=== PATIENT | male | born 1930 | race Caucasian/White ===

== ENCOUNTER 2016-09-17 12:34 | Inpatient (IN) | payer MEDICARE, OTHER ==
[~2016-09-17 12:34] MED LIST: ASPIRIN EC81 MG PO; CALTRATE 600 +1 EACH PO; CLARITIN 10MG T10 MG PO; DULERA 200 MCG8.8 GM INH; ESOMEPRAZOLE MA40 MG PO; FLUTICASONE PRO16 GM; HYDRALAZINE HCL50 MG PO; LEVALBUTER1.25 MG/3 INH; LIPITOR TAB 1010 MG PO; METOPROLOL TAR100 MG PO; NORVASC 5 MG TAB5 MG PO; PREDNISONE10 M1 PO; SPIRIVA HANDIH18 MCG INH; SYNTHROID 125125 MCG PO; VALSARTAN320 MG PO; VITAMIN D 11000 UNIT PO; XOPENEX HFA15 GM INH
[2016-09-17 14:26] LABS: HEMOGLOBIN 11.7 gm/dl (14.0-17.5); RED BLOOD COUNT 4.02 M/UL (4.20-5.50); WHITE BLOOD COUNT 7.9 K/UL (4.5-11.0)
[2016-09-17 14:55] LABS: BUN/CREATININE RATIO 23 (0-10)
[2016-09-17] MEDS ORDERED: VITAMIN C 500500 MG PO (18:46)
[2016-09-17] MEDS ORDERED: VITAMIN A8000 UNIT PO (18:46)
[2016-09-17] MEDS ORDERED: VITAMIN E1000 UNI1 PO (18:46)
[2016-09-17] MEDS ORDERED: CVS FISH OIL 11 EAC2 PO (18:49)
[2016-09-17] MEDS ORDERED: CENTRUM SILVER1 EAC1 PO (18:50)
[2016-09-17] MEDS ORDERED: MUCINEX600 MG PO (19:01)
[2016-09-17] MEDS ORDERED: VITAMIN B-122000 MC1 PO (19:03)
[2016-09-17] MEDS ORDERED: SODIUM CHLORIDE4 M1 INH (19:07)
[2016-09-18 05:21] LABS: HEMOGLOBIN 11.7 gm/dl (14.0-17.5); RED BLOOD COUNT 3.94 M/UL (4.20-5.50); WHITE BLOOD COUNT 7.4 K/UL (4.5-11.0)
[2016-09-18 05:44] LABS: BUN/CREATININE RATIO 25 (0-10)
--- NOTE | 2016-09-19 01:46 | NUR ---
PT APPEARS TO HAVE NO AREAS OF SKIN BREAKDOWN. FAMILY DECLINED TO HAVE PATIENT TURNED FOR INSPECTION. FAMILY REPORTS NO AREAS OF BREAKDOWN.
[2016-09-19 06:51] LABS: RED BLOOD COUNT 4.09 M/UL (4.20-5.50)
[2016-09-19 06:52] LABS: WHITE BLOOD COUNT 13.2 K/UL (4.5-11.0)
[2016-09-19 07:16] LABS: BUN/CREATININE RATIO 26 (0-10)
[2016-09-20 04:35] LABS: HEMOGLOBIN 10.3 gm/dl (14.0-17.5)
[2016-09-20 04:36] LABS: RED BLOOD COUNT 3.55 M/UL (4.20-5.50); WHITE BLOOD COUNT 7.8 K/UL (4.5-11.0)
[2016-09-21 05:09] LABS: HEMOGLOBIN 10.3 gm/dl (14.0-17.5); RED BLOOD COUNT 3.55 M/UL (4.20-5.50); WHITE BLOOD COUNT 7.3 K/UL (4.5-11.0)
[2016-09-23 04:28] LABS: HEMOGLOBIN 10.4 gm/dl (14.0-17.5); RED BLOOD COUNT 3.58 M/UL (4.20-5.50); WHITE BLOOD COUNT 7.6 K/UL (4.5-11.0)
[2016-09-23 04:56] LABS: BUN/CREATININE RATIO 33 (0-10)
== END 2016-09-23 12:50 | disposition expired | DRG 208 ==
LOC: ER1 12:34 → ZEROF 15:59 → CCU 15:59 → ZEROF 15:59 → PROG CARE 09-18 11:58 → CCU 09-19 09:31
PROVIDERS: Emergency Medicine; Internal Medicine; Internal Medicine Critical Care Medicine; Internal Medicine Pulmonary Disease; ADMIT Hospitalist
PROC: 5A1945Z Respiratory Ventilation, 24-96 Consecutive Hours (ICD-10-PCS; principal; 2016-09-19)
PROC: 0BH17EZ Insertion of Endotracheal Airway into Trachea, Via Natural or Artificial Opening (ICD-10-PCS; 2016-09-19)
DX: J15.5 Pneumonia due to Escherichia coli (principal); J96.22 Acute and chronic respiratory failure with hypercapnia; J96.21 Acute and chronic respiratory failure with hypoxia; I50.31 Acute diastolic (congestive) heart failure; E87.1 Hypo-osmolality and hyponatremia; J44.1 Chronic obstructive pulmonary disease with (acute) exacerbation; C34.11 Malignant neoplasm of upper lobe, right bronchus or lung; N17.9 Acute kidney failure, unspecified; C79.51 Secondary malignant neoplasm of bone; C77.1 Secondary and unspecified malignant neoplasm of intrathoracic lymph nodes; I48.92 Unspecified atrial flutter; I11.0 Hypertensive heart disease with heart failure; I48.91 Unspecified atrial fibrillation; D50.9 Iron deficiency anemia, unspecified; E03.9 Hypothyroidism, unspecified; E78.5 Hyperlipidemia, unspecified; K21.9 Gastro-esophageal reflux disease without esophagitis; J98.09 Other diseases of bronchus, not elsewhere classified; Z51.5 Encounter for palliative care; Z66 Do not resuscitate; Z87.891 Personal history of nicotine dependence; Z85.850 Personal history of malignant neoplasm of thyroid; Z92.3 Personal history of irradiation; Z79.82 Long term (current) use of aspirin; Z79.891 Long term (current) use of opiate analgesic; Z79.51 Long term (current) use of inhaled steroids; Z79.899 Other long term (current) drug therapy; Z88.8 Allergy status to other drugs, medicaments and biological substances; Z91.041 Radiographic dye allergy status; Z90.2 Acquired absence of lung [part of]; Z98.890 Other specified postprocedural states
CPT/HCPCS: ECHO; 31500; 36415; 36600; 71010; 71250; 80048; 80053; 80162; 82550; 82553; 82803; 83605; 83735; 83874; 83880; 84100; 84439; 84443; 84484; 85025; 85027; 85610; 85730; 86140; 87040; 87070; 87077; 87081; 87186; 87205; 93005; 93306; 94002; 94003; 94640; 94660; 94664; 96361; 96365; 96367; 96375; 96376; 99285; A4628; J0330; J0696; J1160; J1650; J1720; J1940; J1956; J2185; J2250; J2270; J2405; J7030; J7040; J7050